=== PATIENT | male | born 1940 | race Caucasian/White ===

== ENCOUNTER 2019-04-22 12:28 | Inpatient (IN) | payer MEDICARE ==
[~2019-04-22] VITALS: Ht 175.3 cm; Wt 67.7 kg
[~2019-04-22 12:28] MED LIST: ACET-141 GTB; ACET160O41 GTB; ACET325T33 GTB; ALBU2.5V3 NEB; ALLO300T2 G-TUBE; APIX5TAB G-TUBE; APIX5TAB GTB; ASC500 GTB; ASPI-903 G-TUBE; ATOR10TA65 GTB; ATROVENT INH; BISA10SU55 RC; DANT100C GTB; DOCU50LI23 GTB; FAMO20TA18 GTB; FERR220S13 GTB; FERR220S13 PO; FINA5TAB4 G-TUBE; FINA5TAB4 GTB; GUAI600T23 G-TUBE; HYDR-3670 GTB; HYDR-4011 GTB; IPRA3AMP29 INHALATION; KETO120S3 TOP; LANS30CA GTB; LEVO112T42 G-TUBE; LEVO125T7 GTB; LITH150C G-TUBE; LITH300T5 G-TUBE; MAGN400O19 GTB; MUCO4 NEB; MULT-105 GTB; MUPI22OI2 TOP; NYST1000 GTB; NYST1POW22 TOPICAL; PANT40TA3 G-TUBE; POLY17PO28 GTB; POLY17PO6 PO; SCOP1PAT16 TD; UDREG GTB; VALP250S2 PO; ZINC220C5 GTB; [UNRECOGNIZED DRUG - CODE] TP
[2019-04-22] MEDS ORDERED: ALBUTEROL 0.5% (NEB) 2.5 MG/0.5 ML AMP INH STA (12:47)
[2019-04-22] MEDS ORDERED: SODIUM CHLORIDE 0.9% 1L BAG IV* STA ×2 (12:47→17:06)
[2019-04-22] MEDS ORDERED: CEFEPIME 1GM/50 ML (PMX) 50 ML IVPB ONE (13:00)
[2019-04-22] MEDS ORDERED: ACETAMINOPHEN 650MG/20.3ML CUP NGT ONE (14:30)
[2019-04-22] MEDS ORDERED: LORAZEPAM 2 MG INJ IV ONE (16:30)
[2019-04-22] MEDS ORDERED: ONDANSETRON 4 MG INJ IV PRN (17:00)
[2019-04-22] MEDS ORDERED: NACL 0.9% 3 ML SYG IV SCH (17:00)
[2019-04-22] MEDS ORDERED: ACETAMINOPHEN 650 MG SUPP PR PRN (17:00)
[2019-04-22] MEDS ORDERED: VANCOMYCIN IV PER PHARMACY XX SCH (17:00)
[2019-04-22 17:57] VITALS: BP 128/91; PULSE 83; RESP 32
[2019-04-22] MEDS ORDERED: VANCOMYCIN 1.5 GM/NS 250 ML 250 ML IVPB SCH (18:00)
[2019-04-22] MEDS: FAMOTIDINE 20 MG TAB GTB SCH (18:00)
[2019-04-22 18:42] VITALS: Ht 175.3 cm; Wt 67.7 kg
[2019-04-22 20:00] VITALS: BP 122/57; PULSE 82; RESP 20
[2019-04-22] MEDS ORDERED: AZTREONAM 1 GM/NS (PMX) 50 ML IVPB SCH (21:00)
[2019-04-22] MEDS ORDERED: FERROUS SULFATE 220 MG/5 ML ML GTB SCH (21:00)
[2019-04-22] MEDS: ATORVASTATIN 10 MG TAB GTB SCH (21:15)
[2019-04-22] MEDS: CEFEPIME 1GM/50 ML (PMX) 50 ML IVPB SCH (21:15)
[2019-04-22] MEDS: ASCORBIC ACID 500 MG TAB GTB SCH (21:15)
[2019-04-22] MEDS: APIXABAN 5 MG TABLET GTB SCH (21:15)
[2019-04-22] MEDS: FERROUS SULFATE 60 MG/ML 5ML CUP GTB SCH (21:33)
[2019-04-22] MEDS: ALBUTEROL 0.083% (NEB) 2.5 MG/3 ML AMP HHN PRN (21:41)
[2019-04-22] MEDS ORDERED: HEPARIN 5,000 UNIT/1 ML VIAL SC SCH (22:00)
[2019-04-23] VITALS (7 sets, daily range): BP systolic 100–142; BP diastolic 51–70; PULSE 72–85; RESP 18–38
[2019-04-23] MEDS: ALBUTEROL 0.083% (NEB) 2.5 MG/3 ML AMP HHN PRN ×2 (04:20→10:37)
[2019-04-23] MEDS: FAMOTIDINE 20 MG TAB GTB SCH ×2 (04:54→17:47)
[2019-04-23] MEDS: LEVOTHYROXINE 125 MCG TAB GTB SCH (06:25)
[2019-04-23] MEDS: CEFEPIME 1GM/50 ML (PMX) 50 ML IVPB SCH (09:32)
[2019-04-23] MEDS: FERROUS SULFATE 60 MG/ML 5ML CUP GTB SCH ×2 (09:32→20:25)
[2019-04-23] MEDS: APIXABAN 5 MG TABLET GTB SCH ×2 (09:33→20:25)
[2019-04-23] MEDS: FINASTERIDE 5 MG TAB GTB SCH (09:33)
[2019-04-23] MEDS: ASCORBIC ACID 500 MG TAB GTB SCH ×2 (09:33→20:25)
[2019-04-23] MEDS: LANSOPRAZOLE 30 MG CAP GTB SCH (09:33)
[2019-04-23] MEDS: ZINC SULFATE 220 MG CAP GTB SCH (09:33)
[2019-04-23] MEDS ORDERED: ALBUTEROL 0.083% (NEB) 2.5 MG/3 ML AMP HHN PRN (11:00)
[2019-04-23] MEDS ORDERED: POTASSIUM PHOSPHATE 15 MM in SOD CHLORIDE 0.9% 250 ML IVPB ONE (12:00)
[2019-04-23] MEDS: ALBUTEROL/IPRATROPIUM (NEB) 3 ML AMP HHN SCH ×3 (12:54→20:10)
[2019-04-23] MEDS ORDERED: ALBUTEROL/IPRATROPIUM (NEB) 3 ML AMP HHN SCH (13:00)
[2019-04-23] MEDS: VANCOMYCIN 1 GM 250 ML IVPB SCH (20:25)
[2019-04-23] MEDS: ATORVASTATIN 10 MG TAB GTB SCH (20:25)
[2019-04-23] MEDS: MEROPENEM 1 GM/50ML(PMX) 50 ML IVPB SCH (21:37)
[2019-04-24] VITALS (7 sets, daily range): BP systolic 103–175; BP diastolic 55–90; PULSE 78–102; RESP 18–32
[2019-04-24] MEDS: ALBUTEROL/IPRATROPIUM (NEB) 3 ML AMP HHN SCH ×6 (01:30→20:07)
[2019-04-24] MEDS: ACETYLCYSTEINE 20% 4 ML VIAL NEB SCH ×4 (01:30→20:17)
[2019-04-24] MEDS: FAMOTIDINE 20 MG TAB GTB SCH ×2 (05:33→18:31)
[2019-04-24] MEDS: LEVOTHYROXINE 125 MCG TAB GTB SCH (06:42)
[2019-04-24] MEDS ORDERED: VANCOMYCIN 1 GM 250 ML IVPB SCH (08:00)
[2019-04-24] MEDS: FERROUS SULFATE 60 MG/ML 5ML CUP GTB SCH ×2 (09:07→21:22)
[2019-04-24] MEDS: MEROPENEM 1 GM/50ML(PMX) 50 ML IVPB SCH ×2 (09:08→21:22)
[2019-04-24] MEDS: ZINC SULFATE 220 MG CAP GTB SCH (09:11)
[2019-04-24] MEDS: LANSOPRAZOLE 30 MG CAP GTB SCH (09:11)
[2019-04-24] MEDS: APIXABAN 5 MG TABLET GTB SCH ×2 (09:12→21:22)
[2019-04-24] MEDS: FINASTERIDE 5 MG TAB GTB SCH (09:12)
[2019-04-24] MEDS: ASCORBIC ACID 500 MG TAB GTB SCH ×2 (09:12→21:22)
[2019-04-24] MEDS ORDERED: POTASSIUM PHOSPHATE 15 MM in SOD CHLORIDE 0.9% 250 ML IVPB ONE (12:30)
[2019-04-24] MEDS ORDERED: METHYLPREDNISOLONE 125 MG INJ ONE (15:22)
[2019-04-24] MEDS: VALPROIC ACID LIQUID CUP 250 MG/5 ML CUP PO SCH (15:28)
[2019-04-24] MEDS ORDERED: METHYLPREDNISOLONE 125 MG INJ IV ONE (15:30)
[2019-04-24] MEDS: VANCOMYCIN 1 GM 250 ML IVPB SCH (20:39)
[2019-04-24] MEDS: ATORVASTATIN 10 MG TAB GTB SCH (21:22)
[2019-04-25] MEDS: ALBUTEROL/IPRATROPIUM (NEB) 3 ML AMP HHN SCH ×5 (01:33→20:42)
[2019-04-25] MEDS: ACETYLCYSTEINE 20% 4 ML VIAL NEB SCH (01:43)
[2019-04-25 03:48] VITALS: BP 118/58; PULSE 82; RESP 18
[2019-04-25] MEDS: FAMOTIDINE 20 MG TAB GTB SCH ×2 (05:21→17:23)
[2019-04-25] MEDS: LEVOTHYROXINE 125 MCG TAB GTB SCH (07:02)
[2019-04-25 07:16] VITALS: BP 153/67; PULSE 80; RESP 22
[2019-04-25] MEDS ORDERED: ACCU-CHEK XX ONE ×2 (07:30→12:30)
[2019-04-25] MEDS ORDERED: INSULIN ASPART [NOVOLOG] 3 ML PEN SC ONE ×2 (07:30→12:30)
[2019-04-25] MEDS ORDERED: GLUCOSE GEL 15 GRAM TUBE BUCCAL PRN (08:00)
[2019-04-25] MEDS ORDERED: GLUCOSE GEL 15 GRAM TUBE PO PRN ×2 (08:00)
[2019-04-25] MEDS ORDERED: GLUCAGON 1 MG INJ IM PRN (08:00)
[2019-04-25] MEDS ORDERED: DEXTROSE 50% 50 ML SYRINGE IV PRN ×2 (08:00)
[2019-04-25] MEDS: ZINC SULFATE 220 MG CAP GTB SCH (08:19)
[2019-04-25] MEDS: APIXABAN 5 MG TABLET GTB SCH ×2 (08:19→20:03)
[2019-04-25] MEDS: FERROUS SULFATE 60 MG/ML 5ML CUP GTB SCH ×2 (08:19→20:03)
[2019-04-25] MEDS: FINASTERIDE 5 MG TAB GTB SCH (08:19)
[2019-04-25] MEDS: LANSOPRAZOLE 30 MG CAP GTB SCH (08:19)
[2019-04-25] MEDS: VALPROIC ACID LIQUID CUP 250 MG/5 ML CUP PO SCH (08:19)
[2019-04-25] MEDS: ASCORBIC ACID 500 MG TAB GTB SCH ×2 (08:19→20:03)
[2019-04-25] MEDS: MEROPENEM 1 GM/50ML(PMX) 50 ML IVPB SCH ×2 (08:20→20:02)
[2019-04-25] MEDS: INSULIN ASPART [NOVOLOG] 3 ML PEN SC SCH ×4 (09:01→17:20)
[2019-04-25 11:17] VITALS: BP 135/61; PULSE 82; RESP 20
[2019-04-25] MEDS ORDERED: SODIUM CHLORIDE 0.45% 500 ML BAG IV* ONE (12:30)
[2019-04-25] MEDS: SOD CHLORIDE 0.45% 1,000 ML IV SCH ×3 (12:45→20:03)
[2019-04-25 15:11] VITALS: BP 100/50; PULSE 66; RESP 20
[2019-04-25 20:00] VITALS: BP 105/57; PULSE 79; RESP 19
[2019-04-25] MEDS ORDERED: INSULIN GLARGINE [LANTus] (100 UNITS/ML) SYG SC SCH (20:00)
[2019-04-25] MEDS: ATORVASTATIN 10 MG TAB GTB SCH (20:03)
[2019-04-25] MEDS: VANCOMYCIN 1 GM 250 ML IVPB SCH (21:03)
[2019-04-25 23:58] VITALS: BP 112/54; PULSE 70; RESP 18
[2019-04-26] MEDS: INSULIN ASPART [NOVOLOG] 3 ML PEN SC SCH ×5 (00:15→23:32)
[2019-04-26] MEDS: ALBUTEROL/IPRATROPIUM (NEB) 3 ML AMP HHN SCH ×6 (01:07→20:27)
[2019-04-26 04:00] VITALS: BP 126/60; PULSE 66; RESP 20
[2019-04-26] MEDS: SOD CHLORIDE 0.45% 1,000 ML IV SCH ×3 (04:00→16:39)
[2019-04-26] MEDS: FAMOTIDINE 20 MG TAB GTB SCH ×2 (05:52→17:19)
[2019-04-26] MEDS: LEVOTHYROXINE 125 MCG TAB GTB SCH (05:57)
[2019-04-26] MEDS: LANSOPRAZOLE (SOLTAB) 30 MG TAB GTB SCH (05:57)
[2019-04-26 07:11] VITALS: BP 124/57; PULSE 60; RESP 20
[2019-04-26] MEDS: ASCORBIC ACID 500 MG TAB GTB SCH ×2 (08:38→19:58)
[2019-04-26] MEDS: ZINC SULFATE 220 MG CAP GTB SCH (08:38)
[2019-04-26] MEDS: APIXABAN 5 MG TABLET GTB SCH ×2 (08:39→19:58)
[2019-04-26] MEDS: MEROPENEM 1 GM/50ML(PMX) 50 ML IVPB SCH ×2 (08:39→21:40)
[2019-04-26] MEDS: FINASTERIDE 5 MG TAB GTB SCH (08:39)
[2019-04-26] MEDS: VALPROIC ACID LIQUID CUP 250 MG/5 ML CUP PO SCH (08:39)
[2019-04-26] MEDS: FERROUS SULFATE 60 MG/ML 5ML CUP GTB SCH ×2 (08:39→19:57)
[2019-04-26 11:11] VITALS: BP 122/57; PULSE 76; RESP 20
[2019-04-26 15:15] VITALS: BP 123/60; PULSE 81; RESP 20
[2019-04-26 19:54] VITALS: BP 136/63; PULSE 70; RESP 19
[2019-04-26] MEDS: VANCOMYCIN 1 GM 250 ML IVPB SCH (19:57)
[2019-04-26] MEDS: ATORVASTATIN 10 MG TAB GTB SCH (19:58)
[2019-04-26] MEDS: INSULIN GLARGINE [LANTus] (100 UNITS/ML) SYG SC SCH (20:00)
[2019-04-26 23:45] VITALS: BP 145/69; PULSE 70; RESP 18
[2019-04-27] MEDS: SOD CHLORIDE 0.45% 1,000 ML IV SCH ×2 (00:36→17:30)
[2019-04-27] MEDS: ALBUTEROL/IPRATROPIUM (NEB) 3 ML AMP HHN SCH ×6 (01:04→21:45)
[2019-04-27 02:00] VITALS: BP 137/63; PULSE 68; RESP 18
[2019-04-27] MEDS: INSULIN ASPART [NOVOLOG] 3 ML PEN SC SCH ×3 (06:21→17:31)
[2019-04-27] MEDS: FAMOTIDINE 20 MG TAB GTB SCH ×2 (06:22→17:28)
[2019-04-27] MEDS: LEVOTHYROXINE 125 MCG TAB GTB SCH (06:23)
[2019-04-27 08:00] VITALS: BP 127/58; PULSE 74; RESP 24
[2019-04-27] MEDS: FERROUS SULFATE 60 MG/ML 5ML CUP GTB SCH ×2 (08:43→20:47)
[2019-04-27] MEDS: VALPROIC ACID LIQUID CUP 250 MG/5 ML CUP PO SCH (08:43)
[2019-04-27] MEDS: ZINC SULFATE 220 MG CAP GTB SCH (08:43)
[2019-04-27] MEDS: APIXABAN 5 MG TABLET GTB SCH ×2 (08:43→20:47)
[2019-04-27] MEDS: ASCORBIC ACID 500 MG TAB GTB SCH ×2 (08:43→20:47)
[2019-04-27] MEDS: LANSOPRAZOLE (SOLTAB) 30 MG TAB GTB SCH (09:58)
[2019-04-27] MEDS: MEROPENEM 1 GM/50ML(PMX) 50 ML IVPB SCH (09:58)
[2019-04-27] MEDS: FINASTERIDE 5 MG TAB GTB SCH (11:52)
[2019-04-27 14:00] VITALS: BP 118/57; PULSE 70; RESP 22
[2019-04-27 20:08] VITALS: BP 145/63; PULSE 74; RESP 16
[2019-04-27] MEDS: VANCOMYCIN 1 GM 250 ML IVPB SCH (20:21)
[2019-04-27] MEDS: INSULIN GLARGINE [LANTus] (100 UNITS/ML) SYG SC SCH (20:47)
[2019-04-27] MEDS: ATORVASTATIN 10 MG TAB GTB SCH (20:47)
[2019-04-27] MEDS ORDERED: BALSAM PERU/CASTOR OIL 60 GM TUBE TOP SCH (21:00)
== END 2019-04-27 22:47 | DRG 871 ==
LOC: E/R 12:28 → 6WM 13:58 → EDBEDREQ 14:39 → EDBEDREQSVC 14:39 → EDBEDREQTM 14:39 → CANRESERV 14:59 → PP2 04-26 23:36
PROVIDERS: ADMIT Internal Medicine; ATTEND Internal Medicine
DX: A41.9 Sepsis, unspecified organism (principal); R65.21 Severe sepsis with septic shock; J96.91 Respiratory failure, unspecified with hypoxia; J18.9 Pneumonia, unspecified organism; N39.0 Urinary tract infection, site not specified; E87.0 Hyperosmolality and hypernatremia; I69.351 Hemiplegia and hemiparesis following cerebral infarction affecting right dominant side; Z66 Do not resuscitate; E03.9 Hypothyroidism, unspecified; E78.00 Pure hypercholesterolemia, unspecified; D64.9 Anemia, unspecified; D69.6 Thrombocytopenia, unspecified; N40.0 Benign prostatic hyperplasia without lower urinary tract symptoms; E11.9 Type 2 diabetes mellitus without complications; R13.10 Dysphagia, unspecified; Z93.1 Gastrostomy status; H54.62 Unqualified visual loss, left eye, normal vision right eye; Z74.01 Bed confinement status; Z98.2 Presence of cerebrospinal fluid drainage device; Z86.718 Personal history of other venous thrombosis and embolism; Z79.4 Long term (current) use of insulin
CPT/HCPCS: 71045; 80048; 80053; 80061; 80202; 81001; 82947; 82962; 83036; 83605; 83690; 83735; 84100; 84484; 85025; 85610; 85730; 87086; 87400; 93005; 94640; 94644; 94664; 96365; J0692; J1815; J2060; J2185; J2930; J3370; J7030; J7050